=== PATIENT | male | born 1950 | race Asian ===

== ENCOUNTER 2016-12-20 10:40 | Outpatient (CLI) | payer MEDICARE ==
--- NOTE | 2016-12-20 14:08 | XRay Report ---
LEFT RIBS, 2 VIEWS History: Left rib pain. Findings: Subtle deformity is suspected in the left lateral 10th rib consistent with a nondisplaced fracture. No calcified callus is identified suggesting a relatively acute injury. The remaining left ribs are intact. The left lung is well-aerated. Impression: Fracture, left lateral 10th rib.
== END 2016-12-20 10:41 | disposition home or self-care (01) ==
LOC: SPVIMAG 10:40
PROVIDERS: ATTEND Internal Medicine
DX: S22.32XA Fracture of one rib, left side, initial encounter for closed fracture (principal); X58.XXXA Exposure to other specified factors, initial encounter; Y93.89 Activity, other specified; Y92.89 Other specified places as the place of occurrence of the external cause; Y99.8 Other external cause status